=== PATIENT | female | born 1990 | race Caucasian/White ===

== ENCOUNTER 2020-05-25 13:58 | Outpatient (CLI) | payer OTHER, SELFPAY ==
--- NOTE | ~2020-05-25 | CT_ITS ---
EXAMINATION: CT abdomen pelvis w con DATE: 05/25/2020 14:42 INDICATION: Pelvic pain TECHNIQUE: Computed tomography (CT) of the abdomen and pelvis was performed with 100 cc Omnipaque 350 intravenous contrast. Automated exposure control and iterative reconstruction technique were employe d. Exam dose: 433.07 mGy-cm total exam DLP. COMPARISON: None. FINDINGS: The lung bases are clear. Normal heart size. No pericardial or pleural effusion. Bilateral breast implants are noted. 4 mm left hepatic cyst. The liver is otherwise unremarkable. Status post cholecystectomy. No bile duct or pancreatic duct dilatation. No pancreatic mass lesion or calcification. Normal splenic size. Normal morphology of the adrenal glands. At least one pinpoint nonobstructing right renal calculus is noted. Several nonobstructing pinpoint l eft renal calculi are noted. Several small left renal cysts, measuring 5 mm or smaller. No ureteral calculus or hydroureteronephrosis. The urinary bladder appears normal. Uterus and adnexal areas are unremarkable except for a 12 mm peripherally enhancing right ovarian cys t. Normal caliber of the abdominal aorta. No intraperitoneal or retroperitoneal or pelvic mass lesion or adenopathy or ascites. Normal appendix. No bowel obstruction, bowel wall thickening, pneumatosis or intraperitoneal free air . Small fat-containing umbilical hernia. No suspicious osteolytic or osteoblastic lesions. IMPRESSION: 4 mm peripherally enhancing right ovarian cyst Normal appendix Small hepatic and left renal cysts One right and several left very small nonobstructing renal calculi Status post cholecystectomy Reviewed, dictated and finalized at [facility]. Reviewed, dictated and finalized at [facility]. [employer]
== END 2020-05-25 13:59 | disposition home or self-care (01) ==
LOC: ANHIMG 14:04
PROVIDERS: PCP Nurse Practitioner Obstetrics & Gynecology; Visit Provider Nurse Practitioner Obstetrics & Gynecology
DX: R10.9 Unspecified abdominal pain (principal); R19.7 Diarrhea, unspecified; N28.1 Cyst of kidney, acquired; N20.0 Calculus of kidney; N83.201 Unspecified ovarian cyst, right side
CPT/HCPCS: 74177; Q9967

== ENCOUNTER 2020-10-22 22:46 | Emergency (ER) | payer OTHER, SELFPAY ==
[2020-10-22] VITALS (7 sets, daily range): BP systolic 111–118; BP diastolic 76–77; PULSE 75; RESP 18; TEMP 36.6; O2SAT 98–100
--- NOTE | ~2020-10-22 | CT_ITS ---
EXAMINATION: CT abdomen pelvis w con INDICATION: Right lower quadrant pain TECHNIQUE: Computed tomographic images of the abdomen and pelvis were obtained after the administrati on of 100 cc of Omnipaque 350 intravenous contrast. The dose-length product (DLP) was 441.76 mGy-cm. Automated exposure control and iterative reconstruction technique were employed. COMPARISON: 05/25/2020 FINDINGS: The lung bases are clear. The heart size is normal. Bilateral breast implants are noted. Th e gallbladder is surgically absent. There is mild enlargement of the common bile duct and central int rahepatic ducts which is likely due to post cholecystectomy state. The liver, spleen, pancreas, and a drenal glands are normal. There are punctate nonobstructing stones of the kidneys. No pathologically enlarged abdominal or pelvic lymph nodes are identified. There is no free intraperitoneal gas or evid ence of bowel obstruction. The appendix is normal. There is a small fat-containing umbilical hernia. IMPRESSION: 1. No CT correlate for the patient's symptoms. Reviewed, dictated and finalized at [facility].
[2020-10-22 23:11] LABS: Basophils Absolute Auto 0.1 K/mm3 (0.0-0.1); Basophils Percent Auto 0.6 % (0.2-1.2); Eosinophils Absolute Auto 0.4 K/mm3 (0-0.3); Hematocrit 42.8 % (37.0-47.0); Hemoglobin 14.2 g/dL (12.0-15.0); Immature Granulocyte Absolute 0.03 K/mm3 (0.00-0.031); Immature Granulocyte Percent A 0.3 % (0-0.5); Lymphocytes Absolute Auto 2.85 K/mm3 (0.9-3.2); Lymphocytes Percent Auto 28.2 % (18.3-44.2); Mean Corpuscular HGB Conc 33.2 g/dl (32-36); Mean Corpuscular Hemoglobin 29.5 pg (26-34); Mean Corpuscular Volume 88.8 fl (80-100); Mean Platelet Volume 9.7 fl (7.4-10.4); Monocytes Absolute Auto 0.4 K/mm3 (0.1-0.6); Monocytes Percent Auto 3.5 % (2.6-8.5); Neutrophils Absolute Auto 6.4 K/mm3 (1.3-6.7); Neutrophils Percent Auto 63.4 % (45.5-73.1); Platelet Count Result 320 k/mm3 (150-375); Red Blood Count 4.82 M/mm3 (4.2-5.4); Red Cell Distribution Width 13.2 % (11.5-14.5); White Blood Count 10.1 K/mm3 (4.5-10.0)
[2020-10-22 23:20] LABS: Add Urine Microscopic? YES; Amorphous Sediment Urine Few; Appearance Urine Cloudy (Clear); Bacteria Urine 1+ /hpf; Bilirubin Urine Negative (Negative); Blood Urine Negative (Negative); Color Urine Yellow (Yellow); Glucose Urine UA Negative (Negative); Ketones Urine Negative (Negative); Leukocyte Esterase Ur 1+ LEU/UL (Negative); Mucus Urine Rare /lpf; Nitrate Urine Negative (Negative); Protein Urine Negative (Negative); RBC Urine 0-2 /hpf (0-2); Specific Grav Ur 1.014 (1.001-1.035); Squamous Epithelial Cell Urine Many /hpf (Few); Urobilinogen Urine Negative mg/dL (<2.0)
[2020-10-22 23:24] LABS: Alanine Aminotransferase 33 U/L (4-35); Albumin Level 4.4 g/dL (3.5-5.1); Alkaline Phosphatase 91 U/L (38-126); Anion Gap 7 mmol/L (8-16); Aspartate Amino Transferase 31 U/L (14-36); Bilirubin,Total 0.2 mg/dL (0.2-1.3); Blood Urea Nitrogen 9 mg/dL (7-17); Calcium 9.7 mg/dL (8.4-10.2); Carbon Dioxide 25 mmol/L (22-30); Chloride 110 mmol/L (98-107); Estimated CRCL calculation 66 ml/min; Estimated Glomerular Filt Rate 58; Glucose 101 mg/dL (65-105); Lipase 93 U/L (23-300); Potassium 3.8 mmol/L (3.4-5.0); Sodium 142 mmol/L (137-145)
[2020-10-23] VITALS (19 sets, daily range): BP systolic 55–128; BP diastolic 11–92; PULSE 80; RESP 18; O2SAT 98–100
--- NOTE | 2020-10-23 02:12 | ED.ABDPAIN ---
HPI - Abdominal Pain General Chief Complaint: Abdominal Pain Stated Complaint: Right flank pain, abd pain, constipation Time Seen by Provider: 10/22/20 23:29 History of Present Illness HPI narrative: Patient is a 30-year-old female who presents ER with multiple complaints. Reports right flank pain as well as right lower quadrant pain. Ongoing for last 2 days. Nausea without vomiting. She reports constipation related to this. No urinary frequency urgency or dysuria. Patient does have history of interstitial cystitis as well as ulcerative colitis, and kidney stones. No fevers or chills or sweats. No aggravating or alleviating factors. Related Data Home Medications Medication Instructions Recorded Confirmed atenolol 25 mg PO DAILY 10/22/20 dicyclomine 20 mg PO BID 10/22/20 dimenhydrinate [Dipendrate] 10/22/20 hydroxyzine HCl 25 mg PO QID 10/22/20 paroxetine HCl 10 mg PO QAM 10/22/20 topiramate 25 mg PO BID 10/22/20 Allergies Allergy/AdvReac Type Severity Reaction Status Date / Time Sulfa (Sulfonamide AdvReac Vomiting Verified 10/22/20 23:22 Antibiotics) Review of Systems Review of Systems: All systems reviewed & are unremarkable except as noted in HPI and below Constitutional: Constitutional: Denies chills, Denies fever(s) and Denies weakness ENT: Denies nasal congestion and Denies sore throat Gastrointestinal: Gastrointestinal: Reports abdominal pain, Reports constipation, Denies diarrhea, Reports nausea and Denies vomiting Genitourinary: Genitourinary: Denies nocturia, Denies dysuria and Reports flank pain PMFSH Past Medical History Medical History (Updated 10/23/20 @ 02:27 by Nate Flowers MD) Interstitial cystitis Kidney stones Ulcerative colitis Surgical History Surgical History (Updated 10/23/20 @ 02:25 by Nate Flowers MD) History of breast augmentation History of cholecystectomy Social History Social History (Updated 10/23/20 @ 02:25 by Nate Flowers MD) Smoking status: Never smoker Exam Narrative: Exam Narrative: GENERAL: Well-appearing, well-nourished, and in no acute distress. HEAD: Normocephalic, atraumatic. ENT: Mucous membranes moist. CHEST: Clear to auscultation. No respiratory distress. HEART: Regular rate and rhythm. Normal peripheral pulses. ABDOMEN: Soft, right lower quadrant tenderness without guarding, nondistended. EXTREMITIES: Normal range of motion. No edema. SKIN: Warm, dry, no rash. NEURO: Alert and oriented x3. PSYCH: Normal mood and affect. Course Course Emergency Course: Informed of results. Resting comfortably. Discharge home. Vital Signs Vital signs: Vital Signs Temperature 97.8 F 10/22/20 22:52 Pulse Rate 75 10/22/20 22:52 Respiratory Rate 18 10/22/20 22:52 Blood Pressure 111/77 10/22/20 22:52 Pulse Oximetry 100 10/22/20 22:52 Temperature 97.8 F 10/22/20 22:52 Pulse Rate 75 10/22/20 22:52 Respiratory Rate 18 10/22/20 22:52 Blood Pressure 111/77 10/22/20 22:52 Pulse Oximetry 100 10/22/20 22:52 MDM - Abdominal Pain Lab Data Result diagrams: 10/22/20 23:02 10/22/20 23:02 Labs: Lab Results 10/22/20 10/22/20 10/22/20 Range/Units 23:02 23:02 23:03 WBC 10.1 H (4.5-10.0) K/mm3 RBC 4.82 (4.2-5.4) M/mm3 Hgb 14.2 (12.0-15.0) g/dL Hct 42.8 (37.0-47.0) % MCV 88.8 (80-100) fl MCH 29.5 (26-34) pg MCHC 33.2 (32-36) g/dl RDW 13.2 (11.5-14.5) % Plt Count 320 (150-375) k/mm3 MPV 9.7 (7.4-10.4) fl Immature Gran % (Auto) 0.3 (0-0.5) % Neut % (Auto) 63.4 (45.5-73.1) % Lymph % (Auto) 28.2 (18.3-44.2) % [place] % (Auto) 3.5 (2.6-8.5) % Eos % (Auto) 4.0 (0-4.4) % Baso % (Auto) 0.6 (0.2-1.2) % Lymph # (Auto) 2.85 (0.9-3.2) K/mm3 [place] # (Auto) 0.4 (0.1-0.6) K/mm3 Eos # (Auto) 0.4 H (0-0.3) K/mm3 Baso # (Auto) 0.1 (0.0-0.1) K/mm3 Abs Immat Gran (auto) 0.03 (0
== END 2020-10-23 02:34 | disposition home or self-care (01) ==
PROVIDERS: Emergency Provider Emergency Medicine
DX: K59.00 Constipation, unspecified (principal); Z87.442 Personal history of urinary calculi
CPT/HCPCS: 36415; 74177; 80053; 81001; 81025; 83690; 85025; 99284; Q9967

== ENCOUNTER 2021-10-11 14:39 | Emergency (ER) | payer OTHER, SELFPAY ==
[2021-10-11] VITALS (8 sets, daily range): BP systolic 115–132; BP diastolic 79–101; PULSE 106–135; RESP 11–24; TEMP 36.6; O2SAT 91–100
--- NOTE | ~2021-10-11 | US_ITS ---
EXAMINATION: US OB <=14 wk fetus w TV INDICATION: abdominal pain, 7 wk TECHNIQUE: Sonography of the pelvis was performed by transabdominal and transvaginal techniques. COMPARISON: None. RESULT: Uterus: - Orientation: Anteverted - Size: 9.1 x 4.6 x 4.9 cm - Myometrium: homogeneous echogenicity Gestation: - Intrauterine gestational sac: Single present - Yolk sac: Present but not measured. - Embryo: Single present - [place] rump length: 0.9 cm, corresponding gestational age 6 weeks, 6 days -Gestational heart rate: present 139 bpm -Subgestational hematoma: Absent Right ovary: - Size : 2.4 x 2.3 x 1.8 cm - Normal sonographic appearance with physiologic follicles and a 1.7 cm cyst. Vascular flow pre sent. Left ovary: - Size: 2.3 x 1.3 x 1.1 cm - Normal sonographic appearance with physiologic follicles. Vascular flow present. Pelvis free fluid: None. IMPRESSION: Single, live intrauterine gestation. Estimated Gestational Age: 6 weeks, 6 days by crown rump length. RAY by ultrasound 05/31/2022. RAY by LMP 05/28/2022. Reviewed, dictated and finalized at [facility]. IMPRESSION: Single, live intrauterine gestation. Estimated Gestational Age: 6 weeks, 6 days by crown rump length. RAY by ultras ound 05/31/2022. RAY by LMP 05/28/2022.
--- NOTE | 2021-10-11 14:48 | ECG_ITS ---
Measurements Intervals [place] Rate: 129 P: 70 IA: 106 QRS: 79 QRSD: 89 T: -43 QT: 334 QTc: 490 Interpretive Statements SINUS TACHYCARDIA WITH SHORT IA INTERVAL BASELINE ARTIFACT NONSPECIFIC ST AND T-WAVE ABNORMALITY BORDERLINE ECG NO PREVIOUS ECG AVAILABLE FOR COMPARISON Electronically Signed On 10-11-2021 15:12:26 CDT by Shimon Nicole M.D.
[2021-10-11 15:07] LABS: Basophils Absolute Auto 0.1 K/mm3 (0.0-0.1); Basophils Percent Auto 0.6 % (0.2-1.2); Eosinophils Absolute Auto 0.1 K/mm3 (0-0.3); Eosinophils Percent Auto 0.7 % (0-4.4); Hematocrit 43.2 % (37.0-47.0); Hemoglobin 14.7 g/dL (12.0-15.0); Immature Granulocyte Absolute 0.03 K/mm3 (0.00-0.031); Immature Granulocyte Percent A 0.3 % (0-0.5); Lymphocytes Absolute Auto 2.78 K/mm3 (0.9-3.2); Lymphocytes Percent Auto 23.4 % (18.3-44.2); Mean Corpuscular Hemoglobin 29.6 pg (26-34); Mean Corpuscular Volume 87.1 fl (80-100); Mean Platelet Volume 9.5 fl (7.4-10.4); Monocytes Absolute Auto 0.6 K/mm3 (0.1-0.6); Monocytes Percent Auto 4.9 % (2.6-8.5); Neutrophils Absolute Auto 8.3 K/mm3 (1.3-6.7); Neutrophils Percent Auto 70.1 % (45.5-73.1); Platelet Count Result 362 k/mm3 (150-375); Red Blood Count 4.96 M/mm3 (4.2-5.4); Red Cell Distribution Width 13.3 % (11.5-14.5); White Blood Count 11.9 K/mm3 (4.5-10.0)
[2021-10-11 15:10] LABS: Appearance Urine Clear (Clear); Bilirubin Urine Negative (Negative); Blood Urine 1+ (Negative); Color Urine Yellow (Yellow); Glucose Urine UA Negative (Negative); Ketones Urine 2+ mg/dL (Negative); Leukocyte Esterase Ur 1+ LEU/UL (Negative); Nitrate Urine Negative (Negative); Protein Urine Negative (Negative); Specific Grav Ur <= 1.005 (1.001-1.035); Urobilinogen Urine 0.2 mg/dL (<2.0)
[2021-10-11 15:19] LABS: Add Urine Microscopic? YES; Bacteria Urine Trace /hpf; Mucus Urine Rare /lpf; RBC Urine 0-2 /hpf (0-2); Squamous Epithelial Cell Urine Occasional /hpf (Few)
[2021-10-11 15:20] LABS: Alanine Aminotransferase 31 U/L (6-35); Albumin Level 4.6 g/dL (3.5-5.1); Alkaline Phosphatase 87 U/L (38-126); Anion Gap 13 mmol/L (8-16); Aspartate Amino Transferase 23 U/L (14-36); Bilirubin,Total 0.3 mg/dL (0.2-1.3); Blood Urea Nitrogen 6 mg/dL (7-17); Calcium 9.1 mg/dL (8.4-10.2); Carbon Dioxide 18 mmol/L (22-30); Chloride 106 mmol/L (98-107); Estimated CRCL calculation 79 ml/min; Estimated Glomerular Filt Rate > 60; Glucose 95 mg/dL (65-110); Lipase 70 U/L (23-300); Sodium 137 mmol/L (137-145)
--- NOTE | 2021-10-11 17:07 | ED.NAVMDI ---
HPI - Nausea/Vomiting/Diarrhea General Chief complaint: Nausea/Vomiting/Diarrhea Stated complaint: n/v/d, 7 weeks preg Time Seen by Provider: 10/11/21 16:51 History of Present Illness HPI Narrative: Patient is a 31-year-old female with a history of endometriosis, ulcerative colitis, interstitial cystitis who is currently 7 weeks here for evaluation of nausea vomiting and diarrhea over the past 3 weeks, worse over the past week. Patient states that every day she has had about 10 episodes of nonbloody diarrhea that is postprandial, and about 3-4 episodes of nonbloody emesis occurring after any p.o. intake. This is accompanied with some diffuse lower abdominal pain and is severe in nature described as sharp and stabbing. She has attempted Tylenol without any relief of her pain. Her GI provider is aware of her symptoms, she provided a stool sample today for them. Patient has established with an OB provider at [facility] but has not had a visit yet. Denies any vaginal bleeding, fevers, chills, sick contacts, new foods, new medications, antibiotic use. Related Data Home Medications Medication Instructions Recorded Confirmed atenolol 25 mg tablet 25 mg PO DAILY 10/22/20 dicyclomine 20 mg tablet 20 mg PO BID 10/22/20 dimenhydrinate 50 mg tablet 10/22/20 hydroxyzine HCl 25 mg tablet 25 mg PO QID 10/22/20 paroxetine HCl 10 mg tablet 10 mg PO QAM 10/22/20 topiramate 25 mg tablet 25 mg PO BID 10/22/20 Allergies Allergy/AdvReac Type Severity Reaction Status Date / Time Sulfa (Sulfonamide AdvReac Vomiting Verified 10/11/21 17:16 Antibiotics) Review of Systems Review of Systems: Gen: Denies fevers or chills Eyes: Denies eye pain or visual change ENT: Denies congestion Respiratory: Denies shortness of breath or cough CV: Denies chest pain or palpitations GI: Reports abdominal pain nausea, emesis or diarrhea denies burning, urgency, frequency or hematuria Musculoskeletal: Denies back pain or muscle pain Neuro: Denies numbness, tingling, weakness or focal weakness Skin: Denies rash Except as documented, all other systems reviewed and negative PMFSH Past Medical History Medical History Interstitial cystitis Kidney stones Ulcerative colitis Surgical History Surgical History History of breast augmentation History of cholecystectomy Social History Social History (Updated 10/23/20 @ 02:25 by Nate Flowers MD) Smoking status: Never smoker Exam Narrative: APPEARANCE: Well appearing, no pain in distress, well-nourished. Head: Normocephalic and atraumatic. EYES: PERRLA/EOMI, conjunctivae clear NOSE: No nasal drainage EARS: External ear normal in appearance THROAT: Oropharynx is clear. Mucous membranes are moist. NECK: Supple. No adenopathy, no masses. RESPIRATORY: Airway patent, respirations nonlabored. Clear to auscultation bilaterally, no rales, rhonchi, wheezing. CARDIOVASCULAR: Regular rate and rhythm without murmurs, rubs, or gallops. ABDOMINAL: Normoactive bowel sounds. Soft, nontender, nondistended. No rebound tenderness or guarding. MUSCULOSKELETAL: Extremities are warm and well-perfused. Moves all extremities well. No edema. NEURO: Normal speech. No focal neurologic deficits. SKIN: Skin is warm and dry. No rashes. PSYCHIATRIC: Normal affect/mood. Course Vital Signs Vital signs: Vital Signs Temperature 97.8 F 10/11/21 14:46 Pulse Rate 135 H 10/11/21 14:46 Respiratory Rate 14 10/11/21 14:46 Blood Pressure 127/94 H 10/11/21 14:46 Pulse Oximetry 100 10/11/21 14:46 Oxygen Delivery Room Air 10/11/21 14:46 Temperature 97.8 F 10/11/21 14:46 Pulse Rate 106 H 10/11/21 20:20 Respiratory Rate 24 H 10/11/21 20:20 Blood Pressure 115/79 10/11/21 20:20 Pulse Oximetry 100 10/11/21 20:20 Oxygen Delivery Room Air 10/11/21 14:46 MDM
[2021-10-11] MEDS: diphenhydrAMINE HCl INJ 50 MG/ML VIAL 12.5 MG IV PUSH (17:11)
[2021-10-11] MEDS: METOCLOPRAMIDE HCL INJ 10 MG/2 ML VIAL IV PUSH (17:11)
[2021-10-11] MEDS: LACTATED RINGERS 1,000 ML 999 ML IV CONT ×2 (17:15→19:05)
[2021-10-11 18:06] LABS: Lactic Acid Reflex 1.4 mmol/L (0.7-2.0)
== END 2021-10-11 20:21 | disposition home or self-care (01) ==
PROVIDERS: Family Medicine; Physician Assistant; Emergency Provider Emergency Medicine
DX: O99.611 Diseases of the digestive system complicating pregnancy, first trimester (principal); K52.9 Noninfective gastroenteritis and colitis, unspecified; O99.891 Other specified diseases and conditions complicating pregnancy; N30.10 Interstitial cystitis (chronic) without hematuria; K51.90 Ulcerative colitis, unspecified, without complications; Z87.442 Personal history of urinary calculi; Z3A.01 Less than 8 weeks gestation of pregnancy; R00.0 Tachycardia, unspecified; R94.31 Abnormal electrocardiogram [ECG] [EKG]
CPT/HCPCS: 36415; 76801; 76817; 80053; 81001; 81025; 83605; 83690; 84702; 85025; 93005; 96361; 96374; 96375; 99284; J1200; J2765; J7120